=== PATIENT | male | born 1970 | race Caucasian/White ===

== ENCOUNTER 2019-10-14 05:02 | Emergency (ER) | payer OTHER ==
[~2019-10-14] VITALS: Ht 177.8 cm; Wt 93.4 kg
[2019-10-14] MEDS ORDERED: MUCI1TAB16 PO (05:12)
[2019-10-14] MEDS ORDERED: IBUP200C33 PO (05:12)
[2019-10-14] MEDS ORDERED: ABRE10CR TOP (08:48)
[2019-10-14] MEDS ORDERED: DOXY100C37 PO (08:48)
[2019-10-14 09:10] VITALS: BP 110/61
--- NOTE | 2019-10-14 19:51 | ECGEPIP ---
[facility] - ED Test Date: 2019-10-14 Pat Name: ISABEL PATEL Department: Room: - Gender: Male Laboratory Technical Specialist: leonila : 1970 Requested By: BRANDEN HUSAIN PA-C. Order Number: [id number] Reading MD: Edouard Urias Measurements Intervals [place] Rate: 80 P: 34 ID: [id number] QRS: 67 QRSD: 102 T: -1 QT: 391 QTc: 451 Interpretive Statements SINUS RHYTHM POSSIBLE LEFT ATRIAL ENLARGEMENT INCOMPLETE RIGHT BUNDLE BRANCH BLOCK ABNORMAL QRS-T ANGLE NO PRIORS FOR COMPARISON Electronically Signed on 10-14-2019 19:50:52 EST by Edouard Urias
--- NOTE | 2019-10-20 07:40 | REP ---
Clinical: Cough Technique: PA and Lateral Comparison: None Findings: Mediastinum and cardiac silhouette are normal. Mild basilar atelectasis is suggested and hilar adenopathy cannot be excluded as well. No focal consolidation, effusion or pneumothorax. Skeletal structures are intact. Impression: Mild basilar atelectasis with possible hilar adenopathy. Follow-up examination may be warranted. Electronically Signed by Jaycob Hubbard MD 10/20/2019 07:31 A
--- NOTE | 2019-10-20 20:09 | ED PDOC ---
Post-Departure Follow-Up ervin oliveira faxed formal report of cxr for fu Keith Perez MD Oct 20, 2019 20:09
== END 2019-10-14 09:00 | disposition home or self-care (01) ==
LOC: M ED 05:02
DX: J06.9 Acute upper respiratory infection, unspecified (principal); J98.11 Atelectasis; I45.19 Other right bundle-branch block; Z79.899 Other long term (current) drug therapy